=== PATIENT | male | born 1995 | race Caucasian/White ===

== ENCOUNTER 2018-09-22 18:52 | Emergency (ER) | payer OTHER ==
[~2018-09-22] VITALS: Ht 180.3 cm; Wt 104.5 kg
[2018-09-22] MEDS ORDERED: TIZA2TAB4 PO (18:57)
[2018-09-22] MEDS ORDERED: predniSONE 20 MG TAB PO ONE (20:00)
[2018-09-22] MEDS ORDERED: tiZANidine 4 MG TAB PO ONE (20:00)
[2018-09-22] MEDS ORDERED: PRED10TA2 PO (20:11)
[2018-09-22] MEDS ORDERED: TIZA4CAP PO (20:11)
[2018-09-22 20:16] VITALS: BP 131/60
== END 2018-09-22 20:20 | disposition home or self-care (01) ==
LOC: M ED 18:52
DX: S39.012A Strain of muscle, fascia and tendon of lower back, initial encounter (principal); X50.9XXA Other and unspecified overexertion or strenuous movements or postures, initial encounter; Y92.89 Other specified places as the place of occurrence of the external cause